=== PATIENT | female | born 1990 | race Caucasian/White ===

== ENCOUNTER 2019-02-22 07:49 | Emergency (ER) | payer OTHER ==
[~2019-02-22] VITALS: Ht 160 cm; Wt 72.6 kg
[2019-02-22] MEDS ORDERED: ABILIFY20 MG PO (08:35)
[2019-02-22 09:01] VITALS: BP 120/70
== END 2019-02-22 08:47 | disposition home or self-care (01) ==
LOC: ER 07:49
DX: F43.9 Reaction to severe stress, unspecified (principal); G47.00 Insomnia, unspecified

== ENCOUNTER 2019-04-17 06:20 | Emergency (ER) | payer OTHER ==
[~2019-04-17] VITALS: Ht 160 cm; Wt 72.6 kg
[~2019-04-17 06:20] MED LIST: ABILIFY20 MG PO
[2019-04-17] MEDS ORDERED: PEPCID40 MG PO (07:24)
[2019-04-17 07:32] VITALS: BP 99/57
--- NOTE | 2019-04-17 08:34 | EKG ---
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
== END 2019-04-17 07:33 | disposition home or self-care (01) ==
LOC: ER 06:20
DX: R07.89 Other chest pain (principal); F31.9 Bipolar disorder, unspecified; Z79.899 Other long term (current) drug therapy

== ENCOUNTER 2019-06-08 21:49 | Emergency (ER) | payer OTHER ==
[~2019-06-08] VITALS: Ht 167.6 cm; Wt 81.7 kg
[~2019-06-08 21:49] MED LIST changes: +PEPCID40 MG PO
[2019-06-08 22:56] LABS: ABSOLUTE NEUTROPHILS 3.8 thou/uL (1.4-8.2); BASOPHILS 0.5 % (0.0-2.0); EOSINOPHILS 8.2 % (0.0-3.0); HEMATOCRIT 39.7 % (37.0-47.0); HEMOGLOBIN 13.3 gm/dL (12.0-15.0); MCH 30.7 pg (26.0-34.0); MCHC 33.4 g/dL (28.0-37.0); MCV 91.9 fL (80.0-100.0); MONOCYTES 10.8 % (1.0-8.0); POLYS 43.5 % (36.0-66.0); RBC 4.32 mil/uL (4.20-5.00); RDW 12.9 % (10.5-14.5); WBC 9.2 thou/uL (4.0-11.0)
[2019-06-08 22:57] LABS: ANION GAP 10 mmol/L (7-16); BUN 13 mg/dL (7-18); CHLORIDE 102 mmol/L (98-107); CO2 27 mmol/L (21-32); CREATININE 0.8 mg/dL (0.6-1.0); GLUCOSE 86 mg/dL (74-106); POTASSIUM 3.6 mmol/L (3.5-5.1); SODIUM 139 mmol/L (136-145)
[2019-06-08 23:03] LABS: ALBUMIN 3.9 g/dL (3.4-5.0); SALICYLATE < 2.8 mg/dL (2.8-20.0); SGOT 23 U/L (15-37); SGPT 33 U/L (30-65); TOTAL BILIRUBIN 0.4 mg/dL (<0.1-1.0); TOTAL PROTEIN 7.7 g/dL (6.4-8.2)
[2019-06-08 23:11] LABS: URINE BILIRUBIN NEGATIVE (Negative); URINE BLOOD NEGATIVE (Negative); URINE CLARITY CLEAR; URINE COLOR YELLOW; URINE GLUCOSE-RANDOM* NEGATIVE (Negative); URINE KETONES NEGATIVE (Negative); URINE LEUKOCYTES-REFLEX NEGATIVE (Negative); URINE NITRITE-REFLEX NEGATIVE (Negative); URINE PROTEIN (DIPSTICK) NEGATIVE (Negative); URINE SPECIFIC GRAVITY 1.015 (1.005-1.035); URINE UROBILINOGEN 0.2 E.U./dl (0.2-1.0)
[2019-06-08 23:16] LABS: PLATELET COUNT 209 thou/uL (150-400)
[2019-06-08 23:20] LABS: AMP/METHAMP Negative (Negative); BARBITURATES Negative (Negative); BENZODIAZEPINES Negative (Negative); COCAINE Negative (Negative); METHADONE Negative (Negative); OPIATES POSITIVE (Negative); PCP Negative (Negative)
[2019-06-09] MEDS ORDERED: HYDROCODON-ACE1 EAC8 PO (00:01)
[2019-06-09 02:52] VITALS: BP 106/68
== END 2019-06-09 02:54 | disposition home or self-care (01) ==
LOC: ER 21:49
PROVIDERS: Emergency Medicine
DX: F31.89 Other bipolar disorder (principal)

== ENCOUNTER 2020-02-26 09:44 | Emergency (ER) | payer OTHER ==
[~2020-02-26] VITALS: Ht 160 cm; Wt 88.5 kg
[~2020-02-26 09:44] MED LIST changes: +HYDROCODON-ACE1 EAC8 PO
[2020-02-26] MEDS ORDERED: ABILIFY20 MG PO (10:19)
[2020-02-26] MEDS ORDERED: ESKALITH CR450 MG PO (10:20)
[2020-02-26 14:58] VITALS: BP 136/84
== END 2020-02-26 15:00 | disposition home or self-care (01) ==
LOC: ER 09:44
DX: S50.11XA Contusion of right forearm, initial encounter (principal); T74.21XA Adult sexual abuse, confirmed, initial encounter; M54.2 Cervicalgia; M25.531 Pain in right wrist; R07.81 Pleurodynia; Z79.899 Other long term (current) drug therapy; Y93.89 Activity, other specified; Y92.89 Other specified places as the place of occurrence of the external cause; Y99.8 Other external cause status

== ENCOUNTER 2021-02-06 11:30 | Emergency (ER) | payer OTHER ==
[~2021-02-06] VITALS: Ht 160 cm; Wt 90.7 kg
[~2021-02-06 11:30] MED LIST changes: +ESKALITH CR450 MG PO
[2021-02-06] MEDS ORDERED: ESKALITH CR450 MG PO (11:46)
[2021-02-06 12:22] VITALS: BP 119/72
== END 2021-02-06 12:24 | disposition home or self-care (01) ==
LOC: ER 11:30
DX: F32.9 Major depressive disorder, single episode, unspecified (principal); Z76.0 Encounter for issue of repeat prescription; Z79.899 Other long term (current) drug therapy

== ENCOUNTER 2021-04-21 13:32 | Emergency (ER) | payer OTHER ==
[~2021-04-21] VITALS: Ht 160 cm; Wt 86.2 kg
[2021-04-21 13:45] VITALS: BP 141/75
[2021-04-21 13:58] LABS: URINE BILIRUBIN NEGATIVE (Negative); URINE BLOOD NEGATIVE (Negative); URINE CLARITY SL CLOUDY; URINE COLOR YELLOW; URINE GLUCOSE-RANDOM* NEGATIVE (Negative); URINE KETONES NEGATIVE (Negative); URINE NITRITE-REFLEX NEGATIVE (Negative); URINE PROTEIN (DIPSTICK) NEGATIVE (Negative); URINE SPECIFIC GRAVITY 1.015 (1.005-1.035); URINE UROBILINOGEN 0.2 E.U./dl (0.2-1.0)
[2021-04-21 13:59] LABS: URINE LEUKOCYTES-REFLEX 2+ (Negative)
[2021-04-21 14:06] LABS: HEMATOCRIT 38.6 % (37.0-47.0); MCH 30.8 pg (26.0-34.0); MCHC 33.6 g/dL (28.0-37.0); MCV 91.6 fL (80.0-100.0); RBC 4.21 mil/uL (4.20-5.00); RDW 11.8 % (10.5-14.5); WBC 11.6 thou/uL (4.0-11.0)
[2021-04-21 14:07] LABS: SQUAMOUS >10 Many /LPF (0-3)
[2021-04-21 14:11] LABS: URINE RBC None Seen /HPF (NONE SEEN); URINE WBC-REFLEX 6-15 Few /HPF (0-5)
[2021-04-21 14:13] LABS: BACTERIA-REFLEX 1-9 Few /HPF (None Seen); CASTS None Seen /LPF (None Seen); CRYSTALS None Seen /LPF (None Seen)
[2021-04-21 14:20] LABS: CALCIUM 9.2 mg/dL (8.5-10.1); CREATININE 0.7 mg/dL (0.6-1.0); POTASSIUM 4.3 mmol/L (3.5-5.1)
[2021-04-21 14:27] LABS: ALBUMIN 3.6 g/dL (3.4-5.0); TOTAL BILIRUBIN 0.2 mg/dL (0.2-1.0); TOTAL PROTEIN 7.3 g/dL (6.4-8.2)
== END 2021-04-21 14:43 | disposition home or self-care (01) ==
LOC: ER 13:32
PROVIDERS: Emergency Medicine; Physician Assistant
DX: K62.5 Hemorrhage of anus and rectum (principal); Z79.899 Other long term (current) drug therapy